=== PATIENT | male | born 1950 | race Caucasian/White ===

== ENCOUNTER 2024-09-09 18:26 | Emergency (ER) | payer OTHER, SELFPAY ==
[2024-09-09 18:28] VITALS: BP 188/100
--- NOTE | 2024-09-09 18:49 | ED.GENMED ---
History of Present Illness
General
Chief Complaint: Fall
Source: patient
Time Seen by Provider: 09/09/24 18:38
History of Present Illness
History of Present Illness:
73yoM with no pertinent past medical history presenting with his son and granddaughter for evaluation after a fall 1 hour ago. Patient was walking his dog outdoors when he tripped and fell backwards. There was no LOC. Patient is presenting with a
scalp laceration. He denies any headache, dizziness, nausea, vomiting, visual changes, neck pain. Patient is not on any blood thinners. Family states he is acting normally. Last Tdap in 2022.
Past History
Past History
ED Past Medical History: None
ED Past Surgical History: Orthopedic
Social History
Tobacco: Non-smoker
Alcohol: None
Phy Exam
General Physical Exam
General Presentation: well appearing and no apparent distress
General age: appears stated age
General Skin: warm and dry
General Habitus: normal
General Mental: alert
ENT Exam
ENT Exam: other (4cm jagged laceration present to the upper forehead/scalp that is mildly gaping. No surrounding tenderness. )
Eye Exam
Eye Exam: PERRL and conjunctiva normal
Pulmonary Exam
Pulmonary Exam: no respiratory distress
Neurological Exam
Neurological Exam: alert and no motor deficits
[place] Coma Scale
Eye Opening: Spontaneous
Verbal Response: Oriented
Motor Response: Obeys Commands
GCS Total Score: 15
Skin Exam
Skin Exam: normal color and warm/dry
Psychiatric Exam
Psychiatric Exam: normal mood/affect
Course
Vital Signs
Initial and Last Documented VS:
Initial Vital Signs
Temp Pulse Resp BP Pulse Ox
97.4 F 56 16 188/100 98
09/09/24 18:28 09/09/24 18:28 09/09/24 18:28 09/09/24 18:28 09/09/24 18:28
Last Documented Vital Signs
Temp Pulse Resp BP Pulse Ox
97.4 F 55 18 179/93 100
09/09/24 18:28 09/09/24 19:39 09/09/24 19:39 09/09/24 19:39 09/09/24 19:39
Procedures
Laceration Closure
Forehead:
Status of Wound: clean
Size of Wound in cm: 4
Description of Wound Edges: ragged
Preparation: cleaned with saline
Anesthesia: 1% Lidocaine with epi
Revision/Debridement: routine- no revision
Wound exploration: explored to base- no FB
Type of Closure: single layer closure
Skin Closure Material: 4-0 nylon
Number of sutures: 5
MDM/Problems Addressed
Differential Diagnosis Includes:
73yoM here with a scalp laceration after a fall. No LOC. No blood thinners. No headache and patient acting normally per family. Patient is hypertensive with otherwise normal vital signs. He is awake, alert, with a GCS of 15. 4cm jagged laceration
present on exam.
Wound cleaned and repaired as above. Patient tolerated well. No indication for head CT at this time as he denies any headache. Patient in agreement with this. Home wound care discussed. Advised suture removal in 1 week. ED return precautions
discussed. He expressed understanding and was discharged in stable condition.
*Critical Care Note
Total Time (30-74mins, 75-104mins- exclusive of procedures): Not Applicable
ED Attending Note
-
Portions of this chart may have been created with voice recognition software.� Occasional wrong word or��sound alike� substitutions may have occurred due to the inherent limitations of voice recognition software.
Discharge Plan
Departure
Patient Disposition: Home (Routine Discharge)
Date of Disposition: 09/09/24
Time of Disposition: 19:27
Patient with high blood pressure during this ER visit?: Yes
Discharge Problem:
Laceration of scalp
Instructions: Laceration Repair With Stitches (DC)
Prescriptions:
No Action
amoxicillin-pot clavulanate 875-125 mg tablet
1 tab PO BID Qty: 14 0RF
Activity Restrictions/Additional Instructions:
Keep wound clean and dry. Do not get wet for 24 hours.
Sutures should be removed in 7-10 days. Return to the ER with any signs of infection, severe headache, confusion.
Interventions
Interventions:
*Risk Screen - Suicide Last Done: 09/09/24 18:28
*General Assessment Last Done: 09/09/24 18:37
*Neglect/Abuse Screening Last Done: 09/09/24 18:28
*ED COVID-19 Vaccine History Last Done: 09/09/24 18:37
*Nursing Disposition Last Done: 09/09/24 19:39
ED-Musculoskeletal Assessment Last Done: 09/09/24 18:37
ED- Neurological Assessment Last Done: 09/09/24 18:37
ED-Skin Assessment Last Done: 09/09/24 18:37
Discharge Date and Time
Discharge Date/Time: 09/09/24 19:40
Print Language: ARMENIAN
[2024-09-09 19:39] VITALS: BP 179/93
== END 2024-09-09 19:40 | disposition home or self-care (01) ==
LOC: EMR 18:26
PROVIDERS: EMERGENCY PHYSICIAN Student in an Organized Health Care Education/Training Program; FAMILY PHYSICIAN Family Medicine
DX: S01.01XA Laceration without foreign body of scalp, initial encounter (principal); W01.0XXA Fall on same level from slipping, tripping and stumbling without subsequent striking against object, initial encounter
CPT/HCPCS: 99282; 12002